=== PATIENT | female | born 1990 | race Caucasian/White ===

== ENCOUNTER 2023-06-05 16:07 | Inpatient (IN) | payer OTHER ==
[~2023-06-05] VITALS: Ht 156.2 cm; Wt 87.5 kg
[2023-06-05] MEDS ORDERED: NALOXONE HCL 0.4 MG/ML AMP (NARCAN) IVP PRN (17:30)
[2023-06-05] MEDS ORDERED: MORPHINE SULFATE 10 MG/ML VIAL IM ONE (17:30)
[2023-06-05] MEDS ORDERED: AMPICILLIN SODIUM 2 GM VIAL ONE (19:49)
[2023-06-05] MEDS ORDERED: OXYTOCIN/0.9 % SODIUM CHLORIDE 1,000 ML IV ONE ×3 (19:50→21:15)
[2023-06-05] MEDS ORDERED: LIDOCAINE PF 1% 30ML(POUR BTL) INJ ONE (19:55)
[2023-06-05] MEDS ORDERED: LIGHT MINERAL OIL 10 ML VIAL MC ONE (19:55)
[2023-06-05] MEDS ORDERED: NALOXONE HCL 0.4 MG/ML AMP (NARCAN) ONE (19:55)
[2023-06-05] MEDS ORDERED: OXYTOCIN/0.9 % SODIUM CHLORIDE 1,000 ML IV SCH ×2 (20:30→21:15)
[2023-06-05] MEDS ORDERED: WITCH HAZEL LEAF 1 MED.PAD MED.PAD TP PRN ×2 (20:30→21:15)
[2023-06-05] MEDS ORDERED: MEASLES,MUMPS&RUBELLA VACC/PF 12500 UNIT/0.5 ML VIAL SUBQ PRN (20:30)
[2023-06-05] MEDS ORDERED: DIPHTH,PERTUSS(ACELL),TET VAC 0.5 ML VIAL (Tdap) I.M. PRN (20:30)
[2023-06-05] MEDS ORDERED: LANOLIN 7 GM OINT. TP PRN ×2 (20:30→21:15)
[2023-06-05] MEDS ORDERED: DERMOPLAST SPRAY TP PRN ×2 (20:30→21:15)
[2023-06-05] MEDS ORDERED: RHO(D) IMMUNE GLOBULIN/MALTOSE 1500 UNITS/1.3 ML (WINHRO) IM PRN ×2 (20:30→21:15)
[2023-06-05] MEDS ORDERED: TEMAZEPAM 15 MG CAPSULE PO PRN (21:00)
[2023-06-05] MEDS ORDERED: HYDROCORTISONE 0.5% CREAM 28.4 GM CREAM.GM. TP PRN (21:15)
[2023-06-05] MEDS ORDERED: ANUSOL 1 EA SUPP.RECT (PREPARATION H) RC PRN (21:15)
[2023-06-05] MEDS ORDERED: METHYLERGONOVINE MALEATE 0.2 MG TABLET PO PRN (21:15)
[2023-06-05] MEDS ORDERED: METHYLERGONOVINE MALEATE 0.2 MG/ML AMP IM ONE (21:24)
[2023-06-05] MEDS ORDERED: METHYLERGONOVINE MALEATE 0.2 MG/ML AMP ONE (21:24)
[2023-06-05] MEDS ORDERED: LR 1,000 ML IV SCH (23:00)
[2023-06-05] MEDS: IBUPROFEN 600 MG TABLET PO SCH (23:40)
[2023-06-05] MEDS: SENNOSIDES/DOCUSATE SODIUM 1 TAB TABLET(SENOKOT-S) PO SCH (23:44)
[2023-06-06] MEDS ORDERED: IBUPROFEN 600 MG TABLET PO SCH
[2023-06-06 04:18] VITALS: BP_SYST 143; PULSE 111; RESP 22; TEMP 98.5
[2023-06-06] MEDS: IBUPROFEN 600 MG TABLET PO SCH ×3 (05:57→18:23)
[2023-06-06 08:49] LABS: BASOPHILS % (AUTO) 0.2 % (0.0-2.0); EOSINOPHILS % (AUTO) 0.1 % (0.0-4.0); HEMATOCRIT 32.9 % (36-48); HEMOGLOBIN 10.7 g/dL (12.0-16.0); LYMPHOCYTES # (AUTO) 2.1 K/uL (1.0-5.5); LYMPHOCYTES % (AUTO) 10.8 % (20.5-51.5); MEAN CORPUSCULAR HEMOGLOBIN 28 pg (27-31); MEAN CORPUSCULAR HGB CONC 32 % (32-36); MEAN CORPUSCULAR VOLUME 86 fL (79.0-98.0); MONOCYTES # (AUTO) 1.5 K/uL (0.0-1.0); MONOCYTES % (AUTO) 7.7 % (1.7-9.3); NEUTROPHILS # (AUTO) 15.7 K/uL (1.8-7.7); NEUTROPHILS % (AUTO) 81.2 % (40.0-70.0); PLATELET COUNT (AUTO) 243 K/uL (130-430); RED BLOOD CELL COUNT(AUTO) 3.83 MIL/uL (4.2-6.2); RED CELL DISTRIBUTION WIDTH 15.5 % (9.0-15.0); WHITE BLOOD COUNT (AUTO) 19.3 K/uL (4.8-10.8)
[2023-06-06] MEDS ORDERED: DOCUSATE SODIUM 100 MG CAPSULE PO SCH ×2 (09:00)
[2023-06-06 20:00] VITALS: BP_SYST 108; RESP 18; TEMP 99.1
[2023-06-06] MEDS: SENNOSIDES/DOCUSATE SODIUM 1 TAB TABLET(SENOKOT-S) PO SCH (20:31)
[2023-06-06] MEDS ORDERED: SENNOSIDES/DOCUSATE SODIUM 1 TAB TABLET(SENOKOT-S) PO SCH (21:00)
== END 2023-06-06 20:43 | disposition home or self-care (01) | DRG 807 ==
LOC: SPU 16:07 → OBSVTOIN 16:07
PROVIDERS: ADMIT Specialist; ATTEND Specialist
PROC: 10E0XZZ Delivery of Products of Conception, External Approach (ICD-10-PCS; principal; 2023-06-05)
PROC: 0KQM0ZZ Repair Perineum Muscle, Open Approach (ICD-10-PCS; 2023-06-05)
DX: O24.420 Gestational diabetes mellitus in childbirth, diet controlled (principal); Z37.0 Single live birth; O99.824 Streptococcus B carrier state complicating childbirth; O70.1 Second degree perineal laceration during delivery; Z3A.38 38 weeks gestation of pregnancy
CPT/HCPCS: 36415; 85025; 86592; 86870; 86886; 86900; 86901; 87536; 90715; J0290; J2001; J2210; J2270; J2310; J2590; J7120